=== PATIENT | female | born 1990 | race Asian ===

== ENCOUNTER 2017-09-24 07:11 | Inpatient (IN) | payer OTHER ==
[~2017-09-24] VITALS: Ht 149.1 cm; Wt 92.3 kg
[2017-11-06] MEDS ORDERED: PRENATAL1 TA7 PO (02:22)
[2017-11-08] VITALS (71 sets, daily range): BP systolic 97–159; BP diastolic 55–97; PULSE 92–125; TEMP 97.9–100.2
[2017-11-08 06:00] LABS: BASO % 0.2 % (0.0-2.0); EOS % 0.1 % (0-4.0); GRAN # 15.8 (1.4-6.5); GRAN % 81.3 % (42.2-75.2); HEMATOCRIT 37.6 % (37.0-47.0); HEMOGLOBIN 13.2 g/dl (12.5-16.0); LYMPH # 2.1 (1.2-3.4); LYMPH % 10.6 % (20.0-51.0); MEAN CELL VOLUME 85 fl (80.0-100.0); MEAN CORPUSCULAR HEMOGLOBIN 30 pg (27.0-31.0); MEAN CORPUSCULAR HGB CONC 35 g/dl (33.0-37.0); MEAN PLATELET VOLUME 11.5 fl (7.4-10.4); MONO # 1.3 (0.1-0.6); MONO % 6.7 % (1.7-9.3); PLATELET COUNT 215 K/mm3 (130-400); RED BLOOD COUNT 4.43 M/mm3 (4.10-5.30); REDCELL DISTRIBUTION WIDTH-CV 14.5 % (11.5-14.5)
[2017-11-08] MEDS ORDERED: PERCOCET 325 MG1 TA2 PO (12:20)
[2017-11-08] MEDS ORDERED: MOTRIN 800800 MG/TAB PO (12:20)
[2017-11-09 00:45] VITALS: BP 130/86; PULSE 110; TEMP 97.9
[2017-11-09 05:25] VITALS: BP 117/73; PULSE 134; TEMP 100.1
[2017-11-09 07:30] VITALS: BP 110/70; PULSE 120; TEMP 97.9
[2017-11-09 07:32] LABS: HEMOGLOBIN 10.7 g/dl (12.5-16.0)
[2017-11-09 20:30] VITALS: BP 117/71; PULSE 107; TEMP 98.1
[2017-11-10 09:00] VITALS: BP 130/70; PULSE 84; TEMP 98.2
[2017-11-10 16:30] VITALS: BP 133/77; PULSE 96; TEMP 98.3
[2017-11-10 19:00] VITALS: BP 135/70; PULSE 96; TEMP 98
[2017-11-11 07:45] VITALS: BP 140/79; PULSE 98; TEMP 98
== END 2017-11-11 16:50 | disposition home or self-care (01) | DRG 765 ==
LOC: LDR → OB 11-08 04:24 → LDR 11-08 04:24 → OB 11-09 03:52
PROVIDERS: Obstetrics & Gynecology
PROC: 10D00Z1 Extraction of Products of Conception, Low, Open Approach (ICD-10-PCS; principal; 2017-11-08)
PROC: 3E033VJ Introduction of Other Hormone into Peripheral Vein, Percutaneous Approach (ICD-10-PCS; 2017-11-08)
DX: O48.0 Post-term pregnancy (principal); O72.1 Other immediate postpartum hemorrhage; O69.1XX0 Labor and delivery complicated by cord around neck, with compression, not applicable or unspecified; Z3A.40 40 weeks gestation of pregnancy; Z37.0 Single live birth
CPT/HCPCS: J1200; J1885; J2175; J2210; J2370; J2400; J2405; J2590; J2704; J2795; J3010; J7120

== ENCOUNTER 2017-11-02 02:21 | Outpatient (CLI) | payer OTHER ==
[~2017-11-02] VITALS: Ht 147.3 cm; Wt 90.9 kg
[2017-11-02 03:04] VITALS: TEMP 98.1
[2017-11-02 04:00] VITALS: BP 113/69; PULSE 96
== END 2017-11-02 04:20 | disposition home or self-care (01) ==
LOC: LDRO 02:21
DX: Z34.03 Encounter for supervision of normal first pregnancy, third trimester (principal); Z3A.39 39 weeks gestation of pregnancy

== ENCOUNTER 2017-11-06 02:00 | Outpatient (CLI) | payer OTHER ==
[~2017-11-06] VITALS: Ht 147.3 cm; Wt 92.7 kg
[2017-11-06 02:15] VITALS: BP 131/73; PULSE 115; TEMP 98.5
[2017-11-06] MEDS ORDERED: PRENATAL1 TA7 PO (02:22)
[2017-11-06 02:34] VITALS: BP 131/73; PULSE 115; TEMP 98.5
[2017-11-06 03:00] VITALS: PULSE 90
== END 2017-11-06 03:25 | disposition home or self-care (01) ==
LOC: LDRO 02:00
DX: Z34.03 Encounter for supervision of normal first pregnancy, third trimester (principal); Z3A.39 39 weeks gestation of pregnancy

== ENCOUNTER 2017-11-07 21:14 | Outpatient (CLI) | payer OTHER ==
[~2017-11-07] VITALS: Ht 149.9 cm; Wt 92.3 kg
[~2017-11-07 21:14] MED LIST: PRENATAL1 TA7 PO
[2017-11-07 21:32] VITALS: BP 133/85; PULSE 105; TEMP 98
[2017-11-07 22:00] VITALS: BP 133/85; PULSE 105; TEMP 98
[2017-11-07 22:30] VITALS: BP 134/89; PULSE 98
[2017-11-07 23:08] VITALS: BP 147/86; PULSE 108
[2017-11-08] MEDS ORDERED: MOTRIN 800800 MG/TAB PO (12:20)
[2017-11-08] MEDS ORDERED: PERCOCET 325 MG1 TA2 PO (12:20)
== END 2017-11-07 23:20 | disposition home or self-care (01) ==
LOC: LDRO 21:14
DX: O62.9 Abnormality of forces of labor, unspecified (principal); Z3A.39 39 weeks gestation of pregnancy

== ENCOUNTER 2019-03-22 18:05 | Emergency (ER) | payer SELFPAY ==
[~2019-03-22] VITALS: Ht 152.4 cm; Wt 75.0 kg
[~2019-03-22 18:05] MED LIST changes: +MOTRIN 800800 MG/TAB PO; +PERCOCET 325 MG1 TA2 PO
[2019-03-22 18:09] VITALS: BP 149/74; PULSE 115; TEMP 97.5
[2019-03-22] MEDS ORDERED: CEPHALEXIN500 M1 PO (19:51)
== END 2019-03-22 20:15 | disposition home or self-care (01) ==
LOC: COL.ER 18:05
DX: S66.921A Laceration of unspecified muscle, fascia and tendon at wrist and hand level, right hand, initial encounter (principal); Z23 Encounter for immunization; Z98.890 Other specified postprocedural states; W25.XXXA Contact with sharp glass, initial encounter; Y92.009 Unspecified place in unspecified non-institutional (private) residence as the place of occurrence of the external cause
CPT/HCPCS: Q4021